=== PATIENT | female | born 1980 | race Caucasian/White ===

== ENCOUNTER 2017-01-15 12:57 | Inpatient (IN) | payer OTHER ==
[2017-01-15] MEDS ORDERED: SODIUM CHLORIDE 0.9% 1,000 ML IV ONE (13:36)
[2017-01-15] MEDS ORDERED: NALOXONE 0.4 MG/ML 1 ML VIAL IV STA (13:36)
--- NOTE | 2017-01-15 13:51 | ED ---
General Adult HPI - General Chief complaint: Altered Mental Status Stated complaint: confusion Time Seen by Provider: 01/15/17 13:05 Source: patient, EMS, RN notes reviewed Mode of arrival: EMS Limitations: no limitations - History of Present Illness Initial comments: Chief complaint history of present illness this is a 36-year-old female who is at [facility] for approximately 3 weeks. The patient presents today with altered mental status. She is in rehabilitation for alcohol use. She's been receiving medications daily that include Ativan. She reportedly had paracentesis 4 days ago at another facility. Patient persists in having ascites at this time. Patient knows her name and birthdate does not know the year or why she is here. Somewhat repetitious in her answering of questions. She does know that she is at rehab for alcohol abuse. Denies headache chest pain or shortness of breath - Related Data Home Medications Medication Instructions Recorded Confirmed Calcium Carb/Magnesium Ox,Carb 2 tab PO TID PRN 01/15/17 01/15/17 [Allen-Mag 500-250 MG Chewable] Docusate [Colace] 100 mg PO BID@0600,1730 01/15/17 01/15/17 Folic Acid 1 mg PO DAILY@59901/15/17 01/15/17 Furosemide [Lasix] 40 mg PO DAILY@59901/15/17 01/15/17 Ibuprofen [Motrin] 800 mg PO TID@0600,1500,2200 01/15/17 01/15/17 Mirtazapine [Remeron] 15 - 30 mg PO HS PRN 01/15/17 01/15/17 Multivitamins, Thera [Multivitamin 1 tab PO DAILY 01/15/17 01/15/17 (formulary)] Omeprazole [PriLOSEC] 20 mg PO DAILY@59901/15/17 01/15/17 Polyethylene Glycol 3350 [Miralax] 17 gm PO DAILY PRN 01/15/17 01/15/17 Potassium Chloride ER [K-Dur 20] 20 meq PO DAILY@59901/15/17 01/15/17 Propranolol [Inderal] 10 mg PO BID@0600,1730 01/15/17 01/15/17 Spironolactone [Aldactone] 25 mg PO BID@0600,1730 01/15/17 01/15/17 Thiamine [Vitamin B-1] 100 mg PO DAILY 01/15/17 01/15/17 Allergies Allergy/AdvReac Type Severity Reaction Status Date / Time latex Allergy Rash/Hives Verified 01/15/17 13:07 Review of Systems ROS Statement: Those systems with pertinent positive or pertinent negative responses have been documented in the HPI. Patient had a stat glucose done 95. She was also given Narcan 1 dose IV without change. Review of systems no complaint of headache or visual acuity changes his mildly dilated. No chest pain does not complain of shortness of breath doesn't appear to be. Does not complain of abdominal pain denies doing any IV drugs no pratt are noted on the arms etc. the patient does follow commands. But she is confused. Denies any headache or bumps to the head. No apparent nausea vomiting. Notes from the rehab center state that this is an acute onset today. Past medical problems the only history known at this time is for the patient is at a rehabilitation center for alcohol abuse. She had a paracentesis 4 days ago at another facility. And her current med list. Patient unable to give us any other information no other information was sent from the rehab center. After being made to obtain more information from other hospital. ROS Other: All systems not noted in ROS Statement are negative. Past Medical History Additional Past Medical History / Comment(s): liver cirrhosis History of Any Multi-Drug Resistant Organisms: None Reported Past Surgical History: No Surgical Hx Reported Additional Past Surgical History / Comment(s): unk Past Psychological History: No Psychological Hx Reported Smoking Status: Current every day smoker Past Alcohol Use History: None Reported, Abuse Past Drug Use History: None Reported General Exam - General Exam Comments Initial Comments: General: The patient is awake appears slightly tired. Confused in her answers. Alert to her name and date of . Does not know the year. She knows she's probably in the hospital.. She does not know why she is here. Blood pressure 126/51 pulse 73, temp 98.1 pulse 80 7 repeat blood pressure 115/82 pulse ox 97% room air. Eye: Pupils are equal, mildly dilated, round and reactive to light, extra-ocular movements are intact; skin and sclera faintly icteric Ears, nose, mouth and throat: There are moist mucous membranes , no oral lesions, faintly icteric mucous membranes. Neck: The neck is supple, there is no tenderness , no anterior cervical lymphadenopathy. Cardiovascular: There is a regular rate and rhythm. No murmur, rub or gallop is appreciated. Respiratory: Lungs are clear to auscultation, respirations are non-labored, breath sounds are equal. No wheezes, stridor, rales, or rhonchi. Gastrointestinal: Abdomen ascites. Nontender palpation. Back: There is no tenderness to palpation in the midline. There is no obvious deformity. No rashes noted. Denies back pain Musculoskeletal: Normal ROM, no tenderness, There is no calf tenderness or swelling. Sensation intact. Pulses equal bilaterally 2+. Neurological: Neurologically, confused. Alert to her name and her date of . Repetitious : Refusing answers. Mild tremor. No nystagmus. Skin: Mildly icteric Psychiatric: Currently in rehabilitation for alcohol abuse. No other psychological history available this time. Limitations: no limitations Course Vital Signs 01/15/17 01/15/17 01/15/17 13:16 13:34 14:28 Temperature 98.6 F 98.1 F Pulse Rate 71 87 71 Respiratory 18 14 16 Rate Blood Pressure 105/54 115/82 111/54 O2 Sat by Pulse 100 97 100 Oximetry Medical Decision Making - Medical Decision Making Medical decision-making. The patient's white count is 5.7 hemoglobin 9.3 hematocrit 27.5 ET mildly elevated at 15.4 INR 1.6. Potassium 4.2. BUN is 18 creatinine 0.97 with a GFR greater than 60. Glucose 98. Total bilirubin elevated to 4.0. AST 48. Alk phos 221. Troponin less than 0.012. Alcohol 0.0 , ammonia elevated at 51. The patient would not allow a rectal , due to the patient's mental status. This was done with the help of chief medical technologist Megan. Small amount of stool was on her underwear, this tested strongly positive stool guaiac. Patient denies seeing black stool but but stool is seen on the staining of the underwear does appear black. Lately the patient appears to be having panic encephalopathy. She will be given lactulose [address] of the brain was done and reviewed by radiologist his impression is; normal CT scan of the brain. As read by Dr. Gutierrez X-ray of the chest was done 2 views. Reviewed by radiologist. His impression is; normal chest. As read by Dr. Gutierrez The patient did have paracentesis proximal 4 days ago at [facility] and we obtained the results his head no growth no malignant cells. Dr. Holman The patient will be admitted to telemetry with diagnosis of hepatic encephalopathy - Lab Data Result diagrams: 01/15/17 13:30 01/15/17 13:30 Lab Results 01/15/17 01/15/17 01/15/17 Range/Units 13:30 13:30 13:30 WBC 5.7 (3.8-10.6) k/uL RBC 2.32 L (3.80-5.40) m/uL Hgb 9.3 L (11.4-16.0) gm/dL Hct 27.5 L (34.0-46.0) % MCV 118.7 H (80.0-100.0) fL MCH 40.2 H (25.0-35.0) pg MCHC 33.9 (31.0-37.0) g/dL RDW 15.0 (11.5-15.5) % Plt Count 123 L (150-450) k/uL Neutrophils % (Manual) 69.0 % Lymphocytes % (Manual) 27.0 % Monocytes % (Manual) 2.0 % Eosinophils % (Manual) 2.0 % Neutrophils # (Manual) 3.9 (1.3-7.7) k/uL Lymphocytes # (Manual) 1.5 (1.0-4.8) k/uL Monocytes # (Manual) 0.1 (0-1.0) k/uL Eosinophils # (Manual) 0.1 (0-0.7) k/uL Nucleated RBCs 0 (0-0) /100 WBC Polychromasia Present Poikilocytosis (manual Present Anisocytosis (manual) Present Macrocytosis Marked Target Cells Present PT (9.0-12.0) sec INR (<1.1) APTT (22.0-30.0) sec Sodium 141 (137-145) mmol/L Potassium 4.2 (3.5-5.1) mmol/L Chloride 113 H (98-107) mmol/L Carbon Dioxide 21 L (22-30) mmol/L Anion Gap 7 mmol/L BUN 18 H (7-17) mg/dL Creatinine 0.97 (0.52-1.04) mg/dL Est GFR (MDRD) Af Amer >60 (>60 ml/min/1.73 sqM) Est GFR (MDRD) Non-Af >60 (>60 ml/min/1.73 sqM) Glucose 98 (74-99) mg/dL POC Glucose (mg/dL) (75-99) mg/dL POC Glu Psychologist Private Practice ID Plasma Lactic Acid Rustam (0.7-2.0) mmol/L Calcium 8.6 (8.4-10.2) mg/dL Total Bilirubin 4.0 H (0.2-1.3) mg/dL AST 48 H (14-36) U/L ALT 39 (9-52) U/L Alkaline Phosphatase 221 H (38-126) U/L Ammonia (<30) umol/L Total Creatine Kinase 62 (30-135) U/L CK-MB (CK-2) 0.8 (0.0-2.4) ng/mL CK-MB (CK-2) Rel Index 1.3 Troponin I <0.012 (0.000-0.034) ng/mL Total Protein 6.9 (6.3-8.2) g/dL Albumin 2.7 L (3.5-5.0) g/dL Urine Color Urine Appearance (Clear) Urine pH (5.0-8.0) Ur Specific [place] (1.001-1.035) Urine Protein (Negative) Urine Glucose (UA) (Negative) Urine Ketones (Negative) Urine Blood (Negative) Urine Nitrite (Negative) Urine Bilirubin (Negative) Urine Urobilinogen (<2.0) mg/dL Ur Leukocyte Esterase (Negative) Serum Alcohol mg/dL 01/15/17 01/15/17 01/15/17 Range/Units 13:30 14:06 14:10 WBC (3.8-10.6) k/uL RBC (3.80-5.40) m/uL Hgb (11.4-16.0) gm/dL Hct (34.0-46.0) % MCV (80.0-100.0) fL MCH (25.0-35.0) pg MCHC (31.0-37.0) g/dL RDW (11.5-15.5) % Plt Count (150-450) k/uL Neutrophils % (Manual) % Lymphocytes % (Manual) % Monocytes % (Manual) % Eosinophils % (Manual) % Neutrophils # (Manual) (1.3-7.7) k/uL Lymphocytes # (Manual) (1.0-4.8) k/uL Monocytes # (Manual) (0-1.0) k/uL Eosinophils # (Manual) (0-0.7) k/uL Nucleated RBCs (0-0) /100 WBC Polychromasia Poikilocytosis (manual Anisocytosis (manual) Macrocytosis Target Cells PT 15.4 H (9.0-12.0) sec INR 1.6 (<1.1) APTT 27.8 (22.0-30.0) sec Sodium (137-145) mmol/L Potassium (3.5-5.1) mmol/L Chloride (98-107) mmol/L Carbon Dioxide (22-30) mmol/L Anion Gap mmol/L BUN (7-17) mg/dL Creatinine (0.52-1.04) mg/dL Est GFR (MDRD) Af Amer (>60 ml/min/1.73 sqM) Est GFR (MDRD) Non-Af (>60 ml/min/1.73 sqM) Glucose (74-99) mg/dL POC Glucose (mg/dL) 95 (75-99) mg/dL POC Glu Psychologist Private Practice ID Brii Prasad Plasma Lactic Acid Rustam 1.1 (0.7-2.0) mmol/L Calcium (8.4-10.2) mg/dL Total Bilirubin (0.2-1.3) mg/dL AST (14-36) U/L ALT (9-52) U/L Alkaline Phosphatase (38-126) U/L Ammonia 51 H (<30) umol/L Total Creatine Kinase (30-135) U/L CK-MB (CK-2) (0.0-2.4) ng/mL CK-MB (CK-2) Rel Index Troponin I (0.000-0.034) ng/mL Total Protein (6.3-8.2) g/dL Albumin (3.5-5.0) g/dL Urine Color Urine Appearance (Clear) Urine pH (5.0-8.0) Ur Specific [place] (1.001-1.035) Urine Protein (Negative) Urine Glucose (UA) (Negative) Urine Ketones (Negative) Urine Blood (Negative) Urine Nitrite (Negative) Urine Bilirubin (Negative) Urine Urobilinogen (<2.0) mg/dL Ur Leukocyte Esterase (Negative) Serum Alcohol mg/dL 01/15/17 01/15/17 Range/Units 14:40 14:50 WBC (3.8-10.6) k/uL RBC (3.80-5.40) m/uL Hgb (11.4-16.0) gm/dL Hct (34.0-46.0) % MCV (80.0-100.0) fL MCH (25.0-35.0) pg MCHC (31.0-37.0) g/dL RDW (11.5-15.5) % Plt Count (150-450) k/uL Neutrophils % (Manual) % Lymphocytes % (Manual) % Monocytes % (Manual) % Eosinophils % (Manual) % Neutrophils # (Manual) (1.3-7.7) k/uL Lymphocytes # (Manual) (1.0-4.8) k/uL Monocytes # (Manual) (0-1.0) k/uL Eosinophils # (Manual) (0-0.7) k/uL Nucleated RBCs (0-0) /100 WBC Polychromasia Poikilocytosis (manual Anisocytosis (manual) Macrocytosis Target Cells PT (9.0-12.0) sec INR (<1.1) APTT (22.0-30.0) sec Sodium (137-145) mmol/L Potassium (3.5-5.1) mmol/L Chloride (98-107) mmol/L Carbon Dioxide (22-30) mmol/L Anion Gap mmol/L BUN (7-17) mg/dL Creatinine (0.52-1.04) mg/dL Est GFR (MDRD) Af Amer (>60 ml/min/1.73 sqM) Est GFR (MDRD) Non-Af (>60 ml/min/1.73 sqM) Glucose (74-99) mg/dL POC Glucose (mg/dL) (75-99) mg/dL POC Glu Psychologist Private Practice ID Plasma Lactic Acid Rustam (0.7-2.0) mmol/L Calcium (8.4-10.2) mg/dL Total Bilirubin (0.2-1.3) mg/dL AST (14-36) U/L ALT (9-52) U/L Alkaline Phosphatase (38-126) U/L Ammonia (<30) umol/L Total Creatine Kinase (30-135) U/L CK-MB (CK-2) (0.0-2.4) ng/mL CK-MB (CK-2) Rel Index Troponin I (0.000-0.034) ng/mL Total Protein (6.3-8.2) g/dL Albumin (3.5-5.0) g/dL Urine Color Yellow Urine Appearance Clear (Clear) Urine pH 7.5 (5.0-8.0) Ur Specific [place] 1.014 (1.001-1.035) Urine Protein Negative (Negative) Urine Glucose (UA) Negative (Negative) Urine Ketones Negative (Negative) Urine Blood Negative (Negative) Urine Nitrite Negative (Negative) Urine Bilirubin Negative (Negative) Urine Urobilinogen 2.0 (<2.0) mg/dL Ur Leukocyte Esterase Negative (Negative) Serum Alcohol <10 mg/dL Disposition Clinical Impression: Hepatic encephalopathy, GI bleed Disposition: ADMITTED IP TO THIS [facility] Condition: Serious Referrals: None,Stated [Primary Care Provider] - 1-2 days
[2017-01-15 14:04] LABS: ALT 39 U/L (9-52); AST 48 U/L (14-36); Alkaline Phosphatase 221 U/L (38-126); Anion Gap 7 mmol/L; Blood Urea Nitrogen 18 mg/dL (7-17); Calcium 8.6 mg/dL (8.4-10.2); Carbon Dioxide 21 mmol/L (22-30); Chloride 113 mmol/L (98-107); Glucose 98 mg/dL (74-99); Non-African American GFR(MDRD) >60 (>60 ml/min/1.73 sqM); Potassium 4.2 mmol/L (3.5-5.1); Sodium 141 mmol/L (137-145); Total Protein 6.9 g/dL (6.3-8.2)
[2017-01-15 14:08] LABS: INR 1.6 (<1.1); Partial Thromboplastin Time 27.8 sec (22.0-30.0); Prothrombin Time 15.4 sec (9.0-12.0)
[2017-01-15 14:10] LABS: Glucose,Whole Blood 95 mg/dL (75-99)
[2017-01-15 14:11] LABS: Creatine Kinase 62 U/L (30-135)
[2017-01-15 14:22] LABS: Aty Lym Flag Slight; CH 37.9; CHCM 32.1; HCT 27.5 % (34.0-46.0); HDW 2.55; HGB 9.3 gm/dL (11.4-16.0); MCH 40.2 pg (25.0-35.0); MCHC 33.9 g/dL (31.0-37.0); Macrocytosis Marked; Mean Platelet Volume 7.8; RBC 2.32 m/uL (3.80-5.40); WBC 5.7 k/uL (3.8-10.6); WBC (Perox) 5.76
[2017-01-15 14:24] LABS: Creatine Kinase MB 0.8 ng/mL (0.0-2.4); MCV 118.7 fL (80.0-100.0); Troponin I <0.012 ng/mL (0.000-0.034)
[2017-01-15 14:39] LABS: Add Differential Manual Differential
[2017-01-15 14:41] LABS: Nucleated Red Blood Cells 0 /100 WBC (0-0); Total Cells Counted 100
[2017-01-15 14:42] LABS: Polychromasia Present; Target Cells Present
[2017-01-15] MEDS ORDERED: LACTULOSE 20 GM/30 ML CUP PO ONE (15:06)
[2017-01-15 15:22] LABS: Appearance,Urine Clear (Clear); Bilirubin,Urine Negative (Negative); Glucose,Urine (UA) Negative (Negative); Ketones,Urine Negative (Negative); Leukocyte Esterase,Urine Negative (Negative); Nitrite,Urine Negative (Negative); PH, Urine 7.5 (5.0-8.0); Protein,Urine Negative (Negative); Specific Gravity,Urine 1.014 (1.001-1.035); UA Billing (MACRO vs. MICRO) CHEM
--- NOTE | 2017-01-15 15:22 | CT ---
EXAMINATION TYPE: CT brain wo con DATE OF EXAM: 01/15/2017 COMPARISON: NONE HISTORY: Altered mental status. CT DLP: 1156.00 mGycm Automated exposure control for dose reduction was used. FINDINGS: Central structures are midline. There is no evidence of hydrocephalus. No acute focal lesion, mass ef fect or midline shift is seen. I do not see evidence of intracranial blood. The orbits are normal. Visualized portions of the paranasal sinuses and mastoids are clear. No depressed skull fracture is s een. IMPRESSION: NORMAL CT SCAN OF THE BRAIN.
--- NOTE | 2017-01-15 15:24 | XR ---
EXAMINATION TYPE: XR chest 2V DATE OF EXAM: 01/15/2017 HISTORY: altered mental status. REFERENCE: NONE. FINDINGS: The lungs are clear. Pleural spaces are clear. Heart size is within normal limits. IMPRESSION: NORMAL CHEST.
[2017-01-15] MEDS ORDERED: NALOXONE 0.4 MG/ML 1 ML VIAL IV PRN (15:36)
[2017-01-15] MEDS: LACTULOSE 20 GM/30 ML CUP PO SCH ×3 (16:36→23:10)
[2017-01-15 17:04] LABS: Glucose,Whole Blood 93 mg/dL (75-99)
[2017-01-15 17:12] VITALS: BMI 28.6
[2017-01-15] MEDS: SPIRONOLACTONE 25 MG TAB PO SCH (17:32)
[2017-01-15] MEDS: PANTOPRAZOLE 40 MG/10 ML VIAL IV SCH (17:32)
[2017-01-15] MEDS: PROPRANOLOL 10 MG TAB PO SCH (17:32)
[2017-01-15] MEDS: SODIUM CHLORIDE 0.9% 1,000 ML IV SCH (17:49)
--- NOTE | 2017-01-15 17:57 | P.HPIM ---
History of Present Illness H&P Date: 01/15/17 Chief Complaint: Confusion There is 36-year-old female with history of alcohol overuse currently at a inpatient rehab for alcohol was sent to the hospital with change in mental status. Patient last drink was over 3 weeks ago. Patient apparently had a recent hospitalization for abdominal distention. Patient underwent a paracentesis he was attribute it was secondary to alcohol use. Patient today comes in to the hospital appears to be confused. Currently has been receiving Ativan for the last 3 weeks for alcohol withdrawal Patient has been started on appropriate medications for fluid overloaded state secondary to alcohol overuse Patient appears to have multiple episodes of forgetfulness. Unable to recall a lot of recent memory Patient was noted to have an elevated ammonia Computed tomography scan of the head was negative for any acute abnormalities Patient denies having any headaches blurry vision nausea vomiting diarrhea urinary urgency or frequency Review of Systems All systems: negative (Noted in HPI) Past Medical History Past Medical History: GERD/Reflux Additional Past Medical History / Comment(s): liver cirrhosis, hemmroids History of Any Multi-Drug Resistant Organisms: None Reported Past Surgical History: Section, Orthopedic Surgery Additional Past Surgical History / Comment(s): Plate in right Past Psychological History: Anxiety, PTSD Smoking Status: Current every day smoker Past Alcohol Use History: Abuse - Past Family History Mother History Unknown: Yes Medications and Allergies Home Medications Medication Instructions Recorded Confirmed Type Calcium Carb/Magnesium Ox,Carb 2 tab PO TID PRN 01/15/17 01/15/17 History [Allen-Mag 500-250 MG Chewable] Docusate [Colace] 100 mg PO BID@0600,1730 01/15/17 01/15/17 History Folic Acid 1 mg PO DAILY@0600 01/15/17 01/15/17 History Furosemide [Lasix] 40 mg PO DAILY@0601/15/17 01/15/17 History Ibuprofen [Motrin] 800 mg PO TID@0600,1500,2200 01/15/17 01/15/17 History Mirtazapine [Remeron] 15 - 30 mg PO HS PRN 01/15/17 01/15/17 History Multivitamins, Thera [Multivitamin 1 tab PO DAILY 01/15/17 01/15/17 History (formulary)] Omeprazole [PriLOSEC] 20 mg PO DAILY@0600 01/15/17 01/15/17 History Polyethylene Glycol 3350 [Miralax] 17 gm PO DAILY PRN 01/15/17 01/15/17 History Potassium Chloride ER [K-Dur 20] 20 meq PO DAILY@0600 01/15/17 01/15/17 History Propranolol [Inderal] 10 mg PO BID@0600,1730 01/15/17 01/15/17 History Spironolactone [Aldactone] 25 mg PO BID@0600,1730 01/15/17 01/15/17 History Thiamine [Vitamin B-1] 100 mg PO DAILY 01/15/17 01/15/17 History Allergies Allergy/AdvReac Type Severity Reaction Status Date / Time latex Allergy Rash/Hives Verified 01/15/17 13:07 Physical Exam Vitals: Vital Signs Temp Pulse Pulse Resp BP BP Pulse Ox 01/15/17 16:06 97.5 F L 75 16 118/70 100 01/15/17 15:53 98.2 F 79 16 102/54 98 01/15/17 14:28 71 16 111/54 100 01/15/17 13:34 98.1 F 87 14 115/82 97 01/15/17 13:16 98.6 F 71 18 105/54 100 Intake and Output 01/15/17 01/15/17 01/15/17 06:59 14:59 22:59 Other: Weight 63.503 kg 73.4 kg Patient Weight 01/16/17 06:59 Weight 73.4 kg Physical exam Gen. appearance oriented 3 in no distress Neck is supple no JVD Lungs good air entry clear to auscultation no rhonchi or wheezing Heart S1-S2 heard regular rate and rhythm no murmurs appreciated Abdomen is soft nontender no organomegaly bowel sounds are intact Neurologically cranial nerves II-12 grossly intact no focal motor or sensory deficits noted Skin no abnormalities appreciated Psychiatry has multiple episodes of confabulation Results CBC & Chem 7: 01/15/17 13:30 01/15/17 13:30 Labs: Abnormal Lab Results - Last 24 Hours (Table) 01/15/17 01/15/17 01/15/17 Range/Units 13:30 13:30 13:30 RBC 2.32 L (3.80-5.40) m/uL Hgb 9.3 L (11.4-16.0) gm/dL Hct 27.5 L (34.0-46.0) % MCV 118.7 H (80.0-100.0) fL MCH 40.2 H (25.0-35.0) pg Plt Count 123 L (150-450) k/uL PT 15.4 H (9.0-12.0) sec Chloride 113 H (98-107) mmol/L Carbon Dioxide 21 L (22-30) mmol/L BUN 18 H (7-17) mg/dL Total Bilirubin 4.0 H (0.2-1.3) mg/dL AST 48 H (14-36) U/L Alkaline Phosphatase 221 H (38-126) U/L Ammonia (<30) umol/L Albumin 2.7 L (3.5-5.0) g/dL // Range/Units 14:10 RBC (3.80-5.40) m/uL Hgb (11.4-16.0) gm/dL Hct (34.0-46.0) % MCV (80.0-100.0) fL MCH (25.0-35.0) pg Plt Count (150-450) k/uL PT (9.0-12.0) sec Chloride (98-107) mmol/L Carbon Dioxide (22-30) mmol/L BUN (7-17) mg/dL Total Bilirubin (0.2-1.3) mg/dL AST (14-36) U/L Alkaline Phosphatase (38-126) U/L Ammonia 51 H (<30) umol/L Albumin (3.5-5.0) g/dL Thrombosis Risk Factor Assmnt - Choose All That Apply Any of the Below Risk Factors Present?: Yes Each Factor Represents 1 point: Obesity (BMI >25) Thrombosis Risk Factor Assessment Total Risk Factor Score: 1 Thrombosis Risk Factor Assessment Level: Low Risk Assessment and Plan Plan: #1 acute decompensated liver cirrhosis #2 hepatic encephalopathy that is acute #3 Korsakoff encephalopathy #4 bicytopenia secondary to above #5 history of alcohol overuse Plan Continue ongoing care patient has been started on Inderal suspect underlying gastric varices we'll restart home medication will start the patient on Lasix 40 iv twice a day SCDs DC Ativan
[2017-01-15 21:03] LABS: Glucose,Whole Blood 94 mg/dL (75-99)
[2017-01-15] MEDS: FUROSEMIDE 10 MG/ML 4 ML VIAL IV SCH (21:30)
[2017-01-16 03:14] VITALS: TEMP 99.1
[2017-01-16] MEDS: LACTULOSE 20 GM/30 ML CUP PO SCH (05:14)
[2017-01-16 06:09] LABS: Aty Lym Flag Slight; CH 37.4; CHCM 32.1; HCT 23.4 % (34.0-46.0); HDW 2.63; Hypochromasia Slight; MCH 40.2 pg (25.0-35.0); MCHC 34.3 g/dL (31.0-37.0); MCV 117.1 fL (80.0-100.0); Macrocytosis Marked; Mean Platelet Volume 7.8; RBC 1.99 m/uL (3.80-5.40); RDW 14.7 % (11.5-15.5); WBC 5.6 k/uL (3.8-10.6); WBC (Perox) 5.79
[2017-01-16 06:16] LABS: Glucose,Whole Blood 103 mg/dL (75-99)
[2017-01-16 06:17] LABS: ALT 40 U/L (9-52); AST 41 U/L (14-36); Alkaline Phosphatase 146 U/L (38-126); Amylase 40 U/L (30-110); Anion Gap 6 mmol/L; Blood Urea Nitrogen 13 mg/dL (7-17); Calcium 8.2 mg/dL (8.4-10.2); Carbon Dioxide 19 mmol/L (22-30); Chloride 114 mmol/L (98-107); Glucose 91 mg/dL (74-99); LDH 438 U/L (313-618); Non-African American GFR(MDRD) >60 (>60 ml/min/1.73 sqM); Potassium 3.8 mmol/L (3.5-5.1); Sodium 139 mmol/L (137-145); Total Protein 5.9 g/dL (6.3-8.2)
[2017-01-16 06:28] LABS: Add Differential Manual Differential
[2017-01-16 06:30] LABS: Manual Review Performed; Nucleated Red Blood Cells 0 /100 WBC (0-0); Total Cells Counted 100
[2017-01-16] MEDS: SPIRONOLACTONE 25 MG TAB PO SCH (06:31)
[2017-01-16] MEDS: PROPRANOLOL 10 MG TAB PO SCH (06:31)
[2017-01-16] MEDS: PANTOPRAZOLE 40 MG/10 ML VIAL IV SCH (06:32)
[2017-01-16] MEDS: SODIUM CHLORIDE 0.9% 1,000 ML IV SCH (06:34)
[2017-01-16] MEDS ORDERED: THIAMINE 100 MG/ML 2 ML VIAL IVP SCH (09:00)
[2017-01-16] MEDS ORDERED: PANTOPRAZOLE 40 MG/10 ML VIAL IV SCH (09:00)
[2017-01-16] MEDS ORDERED: THIAMINE 100 MG TAB PO SCH (09:00)
[2017-01-16] MEDS: FUROSEMIDE 10 MG/ML 4 ML VIAL IV SCH (09:30)
--- NOTE | 2017-01-16 09:50 | P.CONS ---
History of Present Illness - Reason for Consult Consult date: 01/16/17 Hepatic encephalopathy Requesting physician: Marcos Garcia - History of Present Illness 36-year-old female EtOH abuse alcohol liver disease portal hypertension esophageal varices presents with changes in mental status, resident at [facility] for the last 3 weeks for alcohol use. Last alcoholic drink about 3 weeks ago. Consultation requested for elevated ammonia level and positive guaiac. 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 According to the emergency records patient had black stool in her undergarments. No reports of hematemesis or gross hematochezia. Recent paracentesis approximately 5 days ago at [facility] about 4 L removal, previous paracentesis 1 year ago about 3 L removal; pathology reported as no malignant cells. Patient reports EGD about 1 year ago "mild varices". Admission white count 5.7. Hemoglobin 9.3 presently 8.0. MCV 118. Platelet 107. INR 1.6. Total bilirubin 3.0-4.0. AST 41-48. ALT 39-40. Alkaline phosphatase 146-221. Ammonia 51. Serum alcohol less than 10. BUN 18. Creatinine 0.9. CT brain normal. Review of Systems Constitutional: Denies fever, chills, sweats, weight gain, or loss. HEENT: Negative for migraines, blurred vision or loss, earaches, drainage, tinnitus, oral mucosal lesions, dysphagia, or odynophagia. CARDIAC: Negative for chest pain, arrhythmias, or palpitation. RESPIRATORY: Negative for shortness of breath, hemoptysis, cough, or sputum production. GI: See HPI for pertinent findings. : Negative for hematuria, urgency, frequency, polyuria, or dysuria. GYNc: Denies possibility of . Negative vaginal discharge. MUSCULOSKELETAL: Negative for muscle aches, swelling, arthritis, and arthralgias. NEUROLOGIC: Negative for stroke or TIA. ENDOCRINE: Negative for thyroid problems. SKIN: Negative for rash or itching. PSYCHIATRIC: Negative history for depression and anxiety All systems: negative (See HPI) Past Medical History Past Medical History: GERD/Reflux Additional Past Medical History / Comment(s): liver cirrhosis, hemmroids History of Any Multi-Drug Resistant Organisms: None Reported Past Surgical History: Section, Orthopedic Surgery Additional Past Surgical History / Comment(s): Plate in right Past Psychological History: Anxiety, PTSD Smoking Status: Current every day smoker Past Alcohol Use History: Abuse - Past Family History Mother History Unknown: Yes Medications and Allergies Home Medications Medication Instructions Recorded Confirmed Type Calcium Carb/Magnesium Ox,Carb 2 tab PO TID PRN 01/15/17 01/15/17 History [Allen-Mag 500-250 MG Chewable] Docusate [Colace] 100 mg PO BID@0600,1730 01/15/17 01/15/17 History Folic Acid 1 mg PO DAILY@0600 01/15/17 01/15/17 History Furosemide [Lasix] 40 mg PO DAILY@0600 01/15/17 01/15/17 History Ibuprofen [Motrin] 800 mg PO TID@0600,1500,2200 01/15/17 01/15/17 History Mirtazapine [Remeron] 15 - 30 mg PO HS PRN 01/15/17 01/15/17 History Multivitamins, Thera [Multivitamin 1 tab PO DAILY 01/15/17 01/15/17 History (formulary)] Omeprazole [PriLOSEC] 20 mg PO DAILY@0600 01/15/17 01/15/17 History Polyethylene Glycol 3350 [Miralax] 17 gm PO DAILY PRN 01/15/17 01/15/17 History Potassium Chloride ER [K-Dur 20] 20 meq PO DAILY@0600 01/15/17 01/15/17 History Propranolol [Inderal] 10 mg PO BID@0600,1730 01/15/17 01/15/17 History Spironolactone [Aldactone] 25 mg PO BID@0600,1730 01/15/17 01/15/17 History Thiamine [Vitamin B-1] 100 mg PO DAILY 01/15/17 01/15/17 History Allergies Allergy/AdvReac Type Severity Reaction Status Date / Time latex Allergy Rash/Hives Verified 01/15/17 13:07 Physical Exam Vitals: Vital Signs Temp Pulse Pulse Resp BP BP Pulse Ox 01/16/17 03:14 85 01/16/17 03:13 99.1 F 85 14 101/53 100 01/15/17 23:20 85 01/15/17 23:19 85 14 102/59 99 01/15/17 20:00 99.0 F 86 14 104/56 99 01/15/17 16:06 97.5 F L 75 16 118/70 100 01/15/17 15:53 98.2 F 79 16 102/54 98 01/15/17 14:28 71 16 111/54 100 01/15/17 13:34 98.1 F 87 14 115/82 97 01/15/17 13:16 98.6 F 71 18 105/54 100 Intake and Output 01/15/17 01/16/17 01/16/17 22:59 06:59 14:59 Intake Total 397 Output Total 1 400 Balance 396 -400 Intake: Intake, IV Titration 160 Amount Sodium Chloride 0.9% 1, 160 000 ml @ 80 mls/hr IV . [id number] Rx#:[id number] Oral 237 Output: Urine 1 400 Other: # Bowel Movements 1 Weight 73.4 kg 73 kg General appearance: The patient is alert, oriented, in no acute distress. . HET: Head is normocephalic and atraumatic. Pupils are equal and reactive. Sclerae mild icterus. Oropharynx is clear without lesions. Neck: Supple without lymphadenopathy. Trachea midline. Heart: S1 S2. Regular rate and rhythm. Lungs: No crackles or wheezes are heard. Abdomen: Soft, nontender, distended with ascites bowel sounds. No peritoneal signs. No palpable organomegaly or masses. Extremities: Normal skin color and turgor. No cyanosis, rash, ulceration, clubbing, or edema. Radial and pedal pulses are 2/4 bilaterally. Neurological: No focal deficits. Strength and sensation are grossly intact. Results CBC & Chem 7: 01/16/17 05:42 01/16/17 05:42 Labs: Abnormal Lab Results - Last 24 Hours (Table) 01/15/17 01/15/17 01/15/17 Range/Units 13:30 13:30 13:30 RBC 2.32 L (3.80-5.40) m/uL Hgb 9.3 L (11.4-16.0) gm/dL Hct 27.5 L (34.0-46.0) % MCV 118.7 H (80.0-100.0) fL MCH 40.2 H (25.0-35.0) pg Plt Count 123 L (150-450) k/uL PT 15.4 H (9.0-12.0) sec Chloride 113 H (98-107) mmol/L Carbon Dioxide 21 L (22-30) mmol/L BUN 18 H (7-17) mg/dL POC Glucose (mg/dL) (75-99) mg/dL Calcium (8.4-10.2) mg/dL Total Bilirubin 4.0 H (0.2-1.3) mg/dL AST 48 H (14-36) U/L Alkaline Phosphatase 221 H (38-126) U/L Ammonia (<30) umol/L Total Protein (6.3-8.2) g/dL Albumin 2.7 L (3.5-5.0) g/dL 01/15/17 01/16/17 01/16/17 Range/Units 14:10 05:42 05:42 RBC 1.99 L (3.80-5.40) m/uL Hgb 8.0 L (11.4-16.0) gm/dL Hct 23.4 L (34.0-46.0) % MCV 117.1 H (80.0-100.0) fL MCH 40.2 H (25.0-35.0) pg Plt Count 107 L (150-450) k/uL PT (9.0-12.0) sec Chloride 114 H (98-107) mmol/L Carbon Dioxide 19 L (22-30) mmol/L BUN (7-17) mg/dL POC Glucose (mg/dL) (75-99) mg/dL Calcium 8.2 L (8.4-10.2) mg/dL Total Bilirubin 3.0 H (0.2-1.3) mg/dL AST 41 H (14-36) U/L Alkaline Phosphatase 146 H (38-126) U/L Ammonia 51 H (<30) umol/L Total Protein 5.9 L (6.3-8.2) g/dL Albumin 2.2 L (3.5-5.0) g/dL 01/16/17 Range/Units 05:54 RBC (3.80-5.40) m/uL Hgb (11.4-16.0) gm/dL Hct (34.0-46.0) % MCV (80.0-100.0) fL MCH (25.0-35.0) pg Plt Count (150-450) k/uL PT (9.0-12.0) sec Chloride (98-107) mmol/L Carbon Dioxide (22-30) mmol/L BUN (7-17) mg/dL POC Glucose (mg/dL) 103 H (75-99) mg/dL Calcium (8.4-10.2) mg/dL Total Bilirubin (0.2-1.3) mg/dL AST (14-36) U/L Alkaline Phosphatase (38-126) U/L Ammonia (<30) umol/L Total Protein (6.3-8.2) g/dL Albumin (3.5-5.0) g/dL Assessment and Plan (1) Hepatic encephalopathy Status: Acute (2) Melena Status: Acute (3) Acute blood loss anemia Status: Acute (4) Alcoholic hepatitis with ascites Status: Acute (5) Alcohol dependency Status: Acute (6) GI bleed Status: Acute (7) Portal hypertension with esophageal varices Status: Acute (8) Alcoholic liver disease Status: Acute Plan: 1. IV Protonix 40 mg every 12 hours. 2. EGD recommended for evaluation of anemia and melena possible peptic ulcer disease possible esophageal varices with history of underlying alcohol dependency; patient declined she wants to follow up with Dr. Ku and be discharged. 3. Aldactone 40 mg daily. Aldactone 50 mg daily. 4. Low-salt diet. 5. Lactulose 20 g 3 times daily titrate for 3 bowel movements. Follow up with Kimani Velasco GI specialist after discharge. Thank you for this kind referral and the opportunity to participate in the care of your patient. This consultation was discussed with Dr. Weeks. The impression and plan of care have been directed as dictated.
[2017-01-16 11:46] LABS: Glucose,Whole Blood 132 mg/dL (75-99)
[2017-01-16 12:48] VITALS: BP 97/56; PULSE 88; RESP 16
[2017-01-16 15:32] LABS: Hepatitis B Surface Ag Index 0.06
[2017-01-16 15:37] LABS: Hepatitis B Core IgM Index 0.04
[2017-01-16 15:49] LABS: Hepatitis C Virus IgG Ab Reactive (Negative)
--- NOTE | 2017-01-16 18:36 | P.DS ---
Providers Date of admission: 01/15/17 15:46 Attending physician: Charan Chávez Consults: 01/15/17 15:36 Consult Physician Stat Consulting Provider: Josh Marin Consult Reason/Comments: Hepatic encephalopathy, stool guaiac, GI bleed Do you want consulting provider notified?: Yes Primary care physician: Stated None Hospital Course: There is 36-year-old female with history of alcohol overuse currently at a inpatient rehab for alcohol was sent to the hospital with change in mental status. Patient last drink was over 3 weeks ago. Patient apparently had a recent hospitalization for abdominal distention. Patient underwent a paracentesis he was attribute it was secondary to alcohol use. Patient today comes in to the hospital appears to be confused. Currently has been receiving Ativan for the last 3 weeks for alcohol withdrawal Patient has been started on appropriate medications for fluid overloaded state secondary to alcohol overuse Patient appears to have multiple episodes of forgetfulness. Unable to recall a lot of recent memory Patient was noted to have an elevated ammonia Computed tomography scan of the head was negative for any acute abnormalities Patient denies having any headaches blurry vision nausea vomiting diarrhea urinary urgency or frequency Physical exam Gen. appearance oriented 3 in no distress Neck is supple no JVD Lungs good air entry clear to auscultation no rhonchi or wheezing Heart S1-S2 heard regular rate and rhythm no murmurs appreciated Abdomen is soft nontender no organomegaly bowel sounds are intact Neurologically cranial nerves II-12 grossly intact no focal motor or sensory deficits noted Skin no abnormalities appreciated Psychiatry has multiple episodes of confabulation Plan: #1 acute decompensated liver cirrhosis #2 hepatic encephalopathy that is acute #3 [place] encephalopathy #4 bicytopenia secondary to above #5 history of alcohol overuse #6 anemia will need to be worked up on an outpatient basis Patient can follow up with her GI physician Was noted to have Hemoccult-positive however it appears patient has been diagnosed with varices as patient has been on propanolol Patient Condition at Discharge: Serious Plan - Discharge Summary New Discharge Prescriptions: New Spironolactone [Aldactone] 50 mg PO BID@0600,1730 #60 tab Lactulose 20 gm PO DAILY #840 ml Continue Mirtazapine [Remeron] 15 - 30 mg PO HS PRN PRN Reason: sleep Calcium Carb/Magnesium Ox,Carb [Allen-Mag 500-250 MG Chewable] 2 tab PO TID PRN PRN Reason: Polyethylene Glycol 3350 [Miralax] 17 gm PO DAILY PRN PRN Reason: Constipation Propranolol [Inderal] 10 mg PO BID@0600,1730 Docusate [Colace] 100 mg PO BID@0600,1730 Folic Acid 1 mg PO DAILY@0600 Potassium Chloride ER [K-Dur 20] 20 meq PO DAILY@0600 Furosemide [Lasix] 40 mg PO DAILY@0600 Thiamine [Vitamin B-1] 100 mg PO DAILY Multivitamins, Thera [Multivitamin (formulary)] 1 tab PO DAILY Changed Omeprazole [PriLOSEC] 20 mg PO BID #60 Discontinued Ibuprofen [Motrin] 800 mg PO TID@0600,1500,2200 Spironolactone [Aldactone] 25 mg PO BID@0600,1730 Discharge Medication List Calcium Carb/Magnesium Ox,Carb [Allen-Mag 500-250 MG Chewable] 2 tab PO TID PRN [History] Docusate [Colace] 100 mg PO BID@0600,1730 01/15/17 [History] Folic Acid 1 mg PO DAILY@0600 01/15/17 [History] Furosemide [Lasix] 40 mg PO DAILY@0600 01/15/17 [History] Mirtazapine [Remeron] 15 - 30 mg PO HS PRN 01/15/17 [History] Multivitamins, Thera [Multivitamin (formulary)] 1 tab PO DAILY 01/15/17 [History ] Polyethylene Glycol 3350 [Miralax] 17 gm PO DAILY PRN 01/15/17 [History] Potassium Chloride ER [K-Dur 20] 20 meq PO DAILY@0600 01/15/17 [History] Propranolol [Inderal] 10 mg PO BID@0600,1730 01/15/17 [History] Thiamine [Vitamin B-1] 100 mg PO DAILY 01/15/17 [History] Lactulose 20 gm PO DAILY #840 ml 01/16/17 [Rx] Omeprazole [PriLOSEC] 20 mg PO BID #60 01/16/17 [Rx] Spironolactone [Aldactone] 50 mg PO BID@0600,1730 #60 tab 01/16/17 [Rx] Follow up Appointment(s)/Referral(s): Ousmane Ku, DO [REFERRING] - 02/21/19 3:30 pm (first available appointment. Office will Discuss with Dr. Ku and try to get an earlier appointment. They will call with any changes) None,Stated [Primary Care Provider] - 1-2 days Patient Instructions/Handouts: Gastrointestinal Bleeding (DC), Hepatic Encephalopathy (DC) Discharge Disposition: HOME SELF-CARE
== END 2017-01-16 15:27 | disposition home or self-care (01) | DRG 432 ==
LOC: EC 12:57 → 6SEL 15:46
PROVIDERS: ADMIT Hospitalist; ATTEND Hospitalist
DX: K70.40 Alcoholic hepatic failure without coma (principal); I85.01 Esophageal varices with bleeding; K76.6 Portal hypertension; D62 Acute posthemorrhagic anemia; K70.31 Alcoholic cirrhosis of liver with ascites; K70.11 Alcoholic hepatitis with ascites; F10.20 Alcohol dependence, uncomplicated; F17.200 Nicotine dependence, unspecified, uncomplicated; F43.10 Post-traumatic stress disorder, unspecified; K21.9 Gastro-esophageal reflux disease without esophagitis; K64.9 Unspecified hemorrhoids; F41.9 Anxiety disorder, unspecified; Z79.899 Other long term (current) drug therapy; Z91.040 Latex allergy status
CPT/HCPCS: 36415; 70450; 71020; 80053; 80074; 80306; 80320; 81003; 82140; 82150; 82550; 82553; 83605; 83615; 84484; 85025; 85610; 85730; 87040; 93005; 96361; 96374; 96375; 99285